=== PATIENT | male | born 1975 | race Caucasian/White ===

== ENCOUNTER 2018-11-14 19:46 | Emergency (ER) | payer SELFPAY ==
[2018-11-14 19:58] VITALS: RESP 18; O2SAT 99
[2018-11-14] MEDS ORDERED: Clindamycin 600mg/50ml D5W 600 MG/50 ML VIAL IVPB STA (20:24)
[2018-11-14] MEDS ORDERED: Sodium Chloride 0.9% 1,000 ML IV STA (20:26)
--- NOTE | 2018-11-14 20:30 | ED PDOC ---
HPI: Skin/Bite Injury Time Seen by Provider: 11/14/18 20:20 Chief Complaint (Nursing): Wound Check Chief Complaint (Provider): Skin infection History Per: Patient History/Exam Limitations: no limitations Onset/Duration Of Symptoms: Days () Additional Complaint(s): Pt. redness to the nose since Th. He gets cellulitis frequently and has bactrim with him that he started. It was not getting better so he came to the ER. Pt. states he was shaving in the nose area and then this started. Has mild pain there and the face around it on the left. No numbness, tingles, weakness, headaches, dizziness. No fever, but felt feverish. No nausea, vomit, diarrhea. No headaches, neck pain. 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 Past Medical History Reviewed: Nursing Documentation, Vital Signs Vital Signs: Last Vital Signs Temp 99.1 F 11/14/18 19:54 Pulse 86 11/14/18 19:54 Resp 18 11/14/18 19:54 BP 148/102 H 11/14/18 19:54 Pulse Ox 99 11/14/18 19:54 - Medical History Other PMH: cellulitis - Surgical History Surgical History: Denies: Appendectomy - Family History Family History: States: Unknown Family Hx - Living Arrangements Living Arrangements: With Family - Home Medications Home Medications: Ambulatory Orders Medication Instructions Recorded Clindamycin [Cleocin] 300 mg PO QID 7 Days cap 11/14/18 Ibuprofen [Motrin] 600 mg PO TID 7 Days tab 11/14/18 - Allergies Allergies/Adverse Reactions: Allergies Allergy/AdvReac Type Severity Reaction Status Date / Time No Known Allergies Allergy Verified 11/14/18 19:54 Review of Systems ROS Statement: Except As Marked, All Systems Reviewed And Found Negative Constitutional: Positive for: Fever ENT: Positive for: Nose Pain Skin: Positive for: Rash Physical Exam - Reviewed Nursing Documentation Reviewed: Yes Vital Signs Reviewed: Yes - Physical Exam Appears: Positive for: Non-toxic, No Acute Distress Head Exam: Positive for: ATRAUMATIC, NORMAL INSPECTION, NORMOCEPHALIC Skin: Positive for: Rash Eye Exam: Positive for: EOMI, Normal appearance, PERRL ENT: Positive for: Other (tender,anterior nose with induration and erythema, not blanching, no fluctuance; tender left maxillary area around nose (1cm diameter) with erythema that is not blanching, no induration or fluctuance.) Neck: Positive for: Normal, Painless ROM Cardiovascular/Chest: Positive for: Regular Rate, Rhythm Respiratory: Positive for: CNT, Normal Breath Sounds Back: Positive for: Normal Inspection. Negative for: L CVA Tenderness, R CVA Tenderness Extremity: Positive for: Normal ROM. Negative for: Tenderness, Pedal Edema Neurological/Psych: Positive for: Awake, Alert, Normal Tone - Laboratory Results Result Diagrams: 11/14/18 20:45 11/14/18 20:45 Interpretation Of Abn Labs: no acute - ECG O2 Sat by Pulse Oximetry: 99 Pulse Ox Interpretation: Normal - Progress ED Course And Treament: 2153: Stable. AAOx3. Return if not better in 3 days. Fu with pcp. Disposition - Clinical Impression Clinical Impression: Cellulitis - Patient ED Disposition Is Patient to be Admitted: No Counseled Patient/Family Regarding: Studies Performed, Diagnosis, Need For Followup, Rx Given - Disposition Referrals: [facility] [Outside] - 11/15/18 Disposition: Routine/Home Disposition Time: 21:00 Condition: STABLE Additional Instructions: Return if not better in 3 days. Prescriptions: Clindamycin [Cleocin] 300 mg PO QID 7 Days cap Ibuprofen [Motrin] 600 mg PO TID 7 Days tab Instructions: Cellulitis and Erysipelas (Skin Infections) Forms: [employer] (Faroese)
[2018-11-14 21:09] LABS: BASO # 0.1 K/uL (0.0-0.2); BASO % 1.1 % (0.0-2.0); EOS # 0.4 K/uL (0.0-0.7); EOS % 4.7 % (0.0-4.0); LYMPH # 2.3 K/uL (1.0-4.3); LYMPH % 27.2 % (20.0-40.0); MEAN CELL VOLUME 83.9 fl (80.0-94.0); MEAN CORPUSCULAR HEMOGLOBIN 28.3 pg (27.0-31.0); MEAN CORPUSCULAR HGB CONC 33.7 g/dL (33.0-37.0); MEAN PLATELET VOLUME 9.4 fl (7.2-11.7); MONO # 0.6 K/uL (0.0-0.8); MONO % 7.2 % (0.0-10.0); NEUT % 59.8 % (50.0-75.0); NRBC % 0.1 % (0.0-0.0); WHITE BLOOD COUNT 8.4 K/uL (4.8-10.8)
[2018-11-14 21:17] LABS: ALB/GLOB RATIO 1.6 (1.0-2.1); ALBUMIN 4.4 g/dL (3.5-5.0); ALT/SGPT 60 U/L (21-72); AST/SGOT 42 U/L (17-59); BLOOD UREA NITROGEN 9 mg/dl (9-20); CALCIUM 9.4 mg/dL (8.4-10.2); GFR NON-AFRICAN AMERICAN > 60
[2018-11-14 21:35] LABS: VENOUS BLOOD GAS BASE EXCESS 1.5 mmol/L (0.0-2.0); VENOUS BLOOD GAS PCO2 46 mmHg (40-60); VENOUS BLOOD GAS PO2 39 mm/Hg (30-55); VENOUS BLOOD PH 7.38 (7.32-7.43)
[2018-11-14 22:51] VITALS: BP 132/91; PULSE 85; TEMP 98.4
== END 2018-11-14 22:10 | disposition home or self-care (01) ==
LOC: H.ER 19:46
DX: L08.9 Local infection of the skin and subcutaneous tissue, unspecified (principal); L03.211 Cellulitis of face
CPT/HCPCS: 80053; 82803; 85025; 87040; 96365; 96375; 99282; J1885; J7030